=== PATIENT | male | born 2000 | race Caucasian/White ===

== ENCOUNTER 2019-11-24 02:23 | Emergency (ER) | payer OTHER ==
[~2019-11-24] VITALS: Ht 185.4 cm; Wt 74.8 kg
[2019-11-24 02:40] VITALS: BP 121/71
--- NOTE | 2019-11-24 02:40 | NUR ---
ED Nurse Note: Pt walked into ED for c/o laceration to L eyebrow after skateboarding on [employer] and falling. Pt hit his face on the concrete floor, but denies LOC. Laceration to L eyebrow noted with active bleeding. Pressure being placed on lac to control bleeding at this time. ERMD bedside. Pt is aaox4, no other acute distress noted.
[2019-11-24] MEDS ORDERED: Lidocaine 1% 10mg/ml/EPI 0.01mg/ml 30ml INJ ONE (02:45)
--- NOTE | 2019-11-24 02:45 | NUR ---
ED Nurse Note:. removed lido with epi from pyxis via override per ermd order. lido administered by ermd
[2019-11-24] MEDS ORDERED: Lidocaine 1% 10mg/ml/Epi 0.005mg/ml 30ml vial INJ ONE (02:46)
--- NOTE | 2019-11-24 02:50 | NUR ---
ED Nurse Note: ERMD bedside for laceration repair.
--- NOTE | 2019-11-24 03:22 | Emergency Room Report ---
History of Present Illness General Chief Complaint: Head Injury Source: Patient Present Illness HPI This is a 19-year-old male with no past medical history. He presents with complaint of head injury and laceration. He was drinking tonight he was skateboarding. He fell and hit his head on the ground. He sustained a laceration over his left eyebrow. This occurred just prior to arrival. Is been actively bleeding. No loss of consciousness. No other injury. Minimal pain. No dental injury. Allergies: Coded Allergies: No Known Allergies (Unverified , 11/24/19) Patient History Past Medical History: none, see triage record, old chart reviewed Past Surgical History: none Pertinent Family History: none Social History: Reports: alcohol use Immunizations: UTD Reviewed Nursing Documentation: PMH: Agreed; PSxH: Agreed Nursing Documentation-PMH Past Medical History: No Stated History Review of Systems Eye: Denies: eye pain, blurred vision ENT: Denies: ear pain, nose congestion, throat swelling Respiratory: Denies: cough, shortness of breath Cardiovascular: Denies: chest pain, palpitations Gastrointestinal: Denies: abdominal pain, diarrhea, nausea, vomiting Musculoskeletal: Denies: back pain, joint pain Skin: Denies: rash Neurological: Denies: headache, numbness Endocrine: Denies: increased thirst, increased urine Hematologic/Lymphatic: Denies: easy bruising All Other Systems: negative except mentioned in HPI Physical Exam Vital Signs Date Time Temp Pulse Resp B/P (MAP) Pulse Ox O2 Delivery O2 Flow Rate FiO2 11/24/19 02:30 98.2 83 16 121/71 (88) 97 Room Air Vitals normal Sp02 EP Interpretation: reviewed, normal General Appearance: well appearing, no apparent distress, alert Head: normocephalic, other - Left eyebrow area: There is a jagged 4 cm laceration. No foreign body. Actively oozing. Eyes: bilateral eye PERRL, bilateral eye EOMI ENT: hearing grossly normal, normal pharynx Neck: full range of motion, supple, no meningismus Respiratory: chest non-tender, lungs clear, normal breath sounds Cardiovascular #1: regular rate, rhythm, no murmur Gastrointestinal: normal bowel sounds, non tender, no mass, no organomegaly, no bruit, non-distended Musculoskeletal: back normal, normal range of motion, gait/station normal Psychiatric: mood/affect normal Procedures Laceration/Wound Repair Laceration/Wound Repair : Consent: Verbal Wound Location: head, face Wound's Depth, Shape: into muscle, irregular, flap, stellate, contused tissue Wound Length (cm): 4 Wound Explored: clean Irrigated w/ Saline (ccs): 1000 Anesthesia: 1% Lidocaine Volume Anesthetic (ccs): 5 Wound Repaired With: sutures Suture Size/Type: 5:0, proline Number of Sutures: 9 Patient Tolerated: Well Complications: None Medical Decision Making Diagnostic Impression: Primary Impression: Acute head injury Qualified Codes: S09.90XA - Unspecified injury of head, initial encounter Additional Impressions: Laceration of eyebrow Qualified Codes: S01.112A - Laceration without foreign body of left eyelid and periocular area, initial encounter Alcohol intoxication Qualified Codes: F10.920 - Alcohol use, unspecified with intoxication, uncomplicated ER Course Patient with head injury and eyebrow laceration. No foreign body. No evidence of any bleed or skull fracture. Will discharge home. CT/MRI/US Diagnostic Results CT/MRI/US Diagnostic Results : Imaging Test Ordered: CT head Impression Read by radiologist. No acute bleed. soft tissue swelling Last Vital Signs Date Time Temp Pulse Resp B/P (MAP) Pulse Ox O2 Delivery O2 Flow Rate FiO2 11/24/19 02:40 98.2 83 16 121/71 97 Room Air Status: improved Disposition: HOME, SELF-CARE Condition: Stable Scripts Ibuprofen* (MOTRIN*) 600 Mg Tablet 600 MG ORAL THREE TIMES A DAY, #30 TAB 0 Refills Prov: Jose Cruz Davies MD 11/24/19 Referrals: NOT CHOSEN IPA/,REFERRING (PCP) Additional Instructions: Follow-up with your doctor in 7 days. Suture in 7 days. Return if symptoms worsen. Jose Cruz Davies MD Nov 24, 2019 03:22
[2019-11-24] MEDS ORDERED: Neosporin Oint Ud Pkt TOPIC ONE (03:30)
--- NOTE | 2019-11-24 04:01 | Diagnostic Imaging Report ---
Indications: Head trauma, supraorbital laceration Technique: Spiral acquisitions obtained through the brain. Angled axial and coronal 5 x 5 mm slices were reconstructed. Total dose length product 1179 mGycm. CTDI vol(s) 53 mGy. Dose reduction achieved using automated exposure control Comparison: None. Findings: There is a slight degree of motion artifact degrading the lower cuts. There is a left supraorbital scalp contusion. No underlying calvarial injury. Normal size ventricles and extra axial CSF spaces. Normal osorio-white differentiation. There is left sided ethmoid sinus disease. The mastoids are clear. The orbits are unremarkable. Impression: Essentially unremarkable exam Incidental finding of minimal sinus disease. This agrees with the preliminary interpretation provided overnight by [facility]erad[facility] service. The CT scanner at [facility] is accredited by the [employer] and the scans are performed using protocols designed to limit radiation exposure to as low as reasonably achievable to attain images of sufficient resolution adequate for diagnostic evaluation.
[2019-11-24] MEDS ORDERED: IBUPROFEN600 MG ORAL (04:24)
[2019-11-24 04:30] VITALS: BP 117/75
--- NOTE | 2019-11-24 04:30 | NUR ---
ER DISCHARGE NOTE: Patient is cleared to be discharged per ERMD, pt is aox4, on room air, with stable vital signs. pt was given dc and prescription instructions, pt was able to verbalize understanding, pt id band removed. pt is able to ambulate with steady gait. pt took all belongings.
== END 2019-11-24 04:30 | disposition home or self-care (01) ==
LOC: EMR 02:59
DX: S01.112A Laceration without foreign body of left eyelid and periocular area, initial encounter (principal); W19.XXXA Unspecified fall, initial encounter; Y93.51 Activity, roller skating (inline) and skateboarding; Y92.9 Unspecified place or not applicable; F10.120 Alcohol abuse with intoxication, uncomplicated
CPT/HCPCS: 70450; 99284

== ENCOUNTER 2019-11-30 13:40 | Emergency (ER) | payer OTHER ==
[~2019-11-30] VITALS: Ht 185.4 cm; Wt 77.1 kg
[~2019-11-30 13:40] MED LIST: IBUPROFEN600 MG ORAL
--- NOTE | 2019-11-30 14:01 | Emergency Room Report ---
History of Present Illness General Chief Complaint: Wound Recheck/Suture Removal Source: Patient Present Illness HPI Patient is a 19-year-old male who presents for wound recheck. Patient had recent suture repair of left eyebrow laceration. He denies any current complaints. Sutures had been placed 1 week ago. Patient had been doing well. Denies any fever or discharge. COVID-19 risk:Travel to affect: No Allergies: Coded Allergies: No Known Allergies (Unverified , 11/24/19) Patient History Past Medical History: see triage record Reviewed Nursing Documentation: PMH: Agreed; PSxH: Agreed Nursing Documentation-PMH Past Medical History: No Stated History Review of Systems All Other Systems: negative except mentioned in HPI Physical Exam Vital Signs Date Time Temp Pulse Resp B/P (MAP) Pulse Ox O2 Delivery O2 Flow Rate FiO2 11/30/19 13:43 97.9 55 17 113/71 (85) 98 Room Air General Appearance: well appearing, no apparent distress, alert, GCS 15, non- toxic Head: normocephalic, atraumatic ENT: hearing grossly normal, normal voice Neck: full range of motion, supple Respiratory: normal inspection, no respiratory distress, speaking full sentences Gastrointestinal: normal inspection Neurologic: alert, motor strength/tone normal, manager new product III-XII nml as tested, oriented x3, normal gait Psychiatric: mood/affect normal Skin: no rash, wd healing/no infection noted Medical Decision Making Diagnostic Impression: Primary Impression: Visit for suture removal ER Course Patient presented for wound check. Differential diagnosis include was not limited to infection, healed wound, among others. Patient has a benign exam and does not appear to require any imaging or laboratory testing at this time. Patient suture removed by me . Patient tolerated this well. Patient to be discharged home. Advised to follow-up for recheck as needed. Last Vital Signs Date Time Temp Pulse Resp B/P (MAP) Pulse Ox O2 Delivery O2 Flow Rate FiO2 11/30/19 13:43 97.9 55 17 113/71 (85) 98 Room Air Status: improved Disposition: HOME, SELF-CARE Condition: Stable Patient Instructions: Suture Removal, Care After Additional Instructions: Return if any concerns. Epifanio Petersen MD Nov 30, 2019 14:01
--- NOTE | 2019-11-30 14:05 | NUR ---
ER DISCHARGE NOTE: Patient is cleared to be discharged per ERMD, pt is aox4, on room air, with stable vital signs. pt was given dc and prescription instructions, pt was able to verbalize understanding, pt is able to ambulate with steady gait. pt took all belongings.
[2019-11-30 16:06] VITALS: BP 113/71
[2019-11-30 16:08] VITALS: BP 113/71
== END 2019-11-30 14:05 | disposition home or self-care (01) ==
LOC: EMR 14:00
DX: S01.112D Laceration without foreign body of left eyelid and periocular area, subsequent encounter (principal); X58.XXXD Exposure to other specified factors, subsequent encounter; Z48.02 Encounter for removal of sutures
CPT/HCPCS: 99281